=== PATIENT | female | born 1950 | race Caucasian/White ===

== ENCOUNTER 2024-06-14 09:05 | Emergency (ER) | payer MEDICARE, MEDICAID, SELFPAY ==
[2024-06-14] VITALS (9 sets, daily range): BP systolic 108–140; BP diastolic 54–113; PULSE 62–76; RESP 16–20; TEMP 36.4–36.6; O2SAT 96–97; BMI 29.0
--- NOTE | 2024-06-14 09:16 | EKG12_ITS ---
Test Reason : Blood Pressure : */* mmHG Vent. Rate : 73 BPM Atrial Rate : 73 BPM P-R Int : 224 ms QRS Dur : 88 ms QT Int : 410 ms P-R-T Axes : 77 60 65 degrees QTcB Int : 451 ms Sinus rhythm with 1st degree A-V block Otherwise normal ECG Confirmed by TANIA CLINE, REECE ([id number]), editorial manager WILBERT LAKHANI ([id number]) on 06/20/2024 7:06:01 AM Referred By: DIYA Confirmed By: REECE MARIN MD
--- NOTE | 2024-06-14 09:16 | CT_ITS ---
EXAM: CT CERVICAL SPINE WITHOUT INTRAVENOUS CONTRAST CLINICAL INDICATION: fall, head injury, mental status change, multiple falls, Eliquis, stroke hx TECHNIQUE: Helically acquired images were obtained of the cervical spine without intravenous contrast. 2D reformatted images were reviewed. This CT exam was performed using one or more of the following dose reduction techniques: automated exposure control, adjustment of the mA and/or kV according to patient size, and/or use of iterative reconstruction technique. RADIATION DOSE: CTDIvol = 19.12 mGy, DLP = 383.10 mGy-cm COMPARISON: No relevant prior studies available. FINDINGS: VERTEBRAE: Straightening of the C-spine curvature. Ankylosis of the predental space. Ankylosis of the left C2-C3, left C3-C4 and C4-C5 facet joints. Partial ankylosis of the right C2-C3 facet joint and right C3-C4 facet joint. No acute or remote fractures of the vertebral bodies and posterior osseous elements of the cervical spine. Minimal degenerative anterolisthesis of C6 on C7. DISCS/SPINAL CANAL/NEURAL FORAMINA: Moderate C5-C6 disc space narrowing with endplate sclerosis. Mild C4-C5 disc space height narrowing. Normal remaining cervical disc space heights. Normal central canal. Mild stenosis of the left C3-C4 and left C4-C5 intervertebral neuroforamina. Normal central canal and remaining cervical intervertebral neuroforamina. No suspicious cervical extruded disc fragment although limited by the absence of intrathecal contrast. SOFT TISSUES: Unremarkable. No prevertebral soft tissue swelling. LYMPH NODES: Unremarkable. No cervical adenopathy. LUNG APICES: Unremarkable as visualized. Clear. CT/Spine Cervical without Contras IMPRESSION: 1. No CT evidence of acute fractures of the cervical spine. 2. Minimal degenerative anterolisthesis of C6 on C7. 3. No CT evidence of cervical extruded disc fragment although limited by the absence of intrathecal contrast. Electronically Signed: Hemal Fajardo MD at 10:06 [facility] ,
--- NOTE | 2024-06-14 09:16 | RAD_ITS ---
EXAM: XR CHEST, 1 VIEW CLINICAL INDICATION: fall TECHNIQUE: Frontal view of the chest. COMPARISON: No relevant prior studies available. FINDINGS: LUNGS AND PLEURAL SPACES: Unremarkable. No consolidation or edema. No pneumothorax. No effusion. HEART: Unremarkable. Cardiac silhouette not enlarged. MEDIASTINUM: Central airways and mediastinal contour are unremarkable. BONES/JOINTS: Unremarkable. No acute fracture. SOFT TISSUES: Unremarkable. RAD/Chest 1 View (Portable) IMPRESSION: No radiographic evidence of acute cardiopulmonary disease. Electronically Signed: Hemal Fajardo MD at 9:45 EST ,
--- NOTE | 2024-06-14 09:16 | CT_ITS ---
EXAM: CT HEAD WITHOUT INTRAVENOUS CONTRAST CLINICAL INDICATION: mental status change, multiple falls, Eliquis, stroke hx TECHNIQUE: Multiple axial images were obtained of the head without intravenous contrast. This CT exam was performed using one or more of the following dose reduction techniques: automated exposure control, adjustment of the mA and/or kV according to patient size, and/or use of iterative reconstruction technique. RADIATION DOSE: CTDIvol = 44.99 mGy, DLP = 812.98 mGy-cm COMPARISON: No relevant prior studies available. FINDINGS: BRAIN AND EXTRA-AXIAL SPACES: Old cortical based ischemic infarct with cystic encephalomalacia and atrophy involving the left MCA and left JEANMARIE territories causing ex vacuo dilatation of the anterior body and frontal horn of the left lateral ventricle and Wallerian degeneration of the left cerebral peduncle. No intra- or extra-axial hemorrhage. No intracranial mass or mass effect. Posterior fossa structures are unremarkable. No hydrocephalus. Basal cisterns are patent. BONES/JOINTS: See above. SINUSES: Unremarkable as visualized. Clear. MASTOID AIR CELLS: Unremarkable. Clear. ORBITS: Visualized globes, extraocular muscles, optic nerves and retrobulbar fat appear unremarkable. CT/Brain/Head without Contrast IMPRESSION: 1. No CT evidence of intracranial bleed, acute ischemic infarct or acute intracranial abnormality. 2. Old cortically-based ischemic infarct with cystic encephalomalacia and atrophy involving the left MCA and left JEANMARIE territories. Electronically Signed: Hemal Fajardo MD at 10:00 EST ,
--- NOTE | 2024-06-14 09:18 | EX.ED.DYSGE1 ---
HPI History of Present Illness Chief Complaint: Alt LOC Detail of Chief Complaint: Mental status change and head injury Informant: patient, EMS and SNF Narrative Narrative: Patient presents to the emergency department via EMS from shelter facility. Patient found on the floor this morning with evidence of trauma to her head. She is on Eliquis for history of A-fib and prior strokes. Patient per fdc normally ANO x 3 and today more confused. She did vomit x 1 this morning. Patient also slid out of her recliner last evening but there was no injury at that time. Patient is a poor historian but will answer yes and no questions. Patient has prior history of stroke and prior history of dysarthria and aphasia. She has history of schizophrenia. PFSH [facility] Home Medications ?Medication ?Instructions ?Recorded ?Last Taken ?Type cephalexin 500 mg capsule 500 mg PO Q6 #28 CAPSULES 06/14/24 Unknown Rx Allergy/AdvReac Type Severity Reaction Status Date / Time adhesive Allergy Unknown NEEDS Verified 06/14/24 09:11 FOLLOW-UP adhesive tape (plastic tape) Allergy Unknown NEEDS Verified 06/14/24 09:11 FOLLOW-UP bee venom protein (honey bee) Allergy Unknown NEEDS Verified 06/14/24 09:11 FOLLOW-UP erythromycin base Allergy Unknown NEEDS Verified 06/14/24 09:11 FOLLOW-UP nitrofurantoin (From Allergy Unknown NEEDS Verified 06/14/24 09:11 Macrobid) FOLLOW-UP Penicillins (PCN) Allergy Unknown NEEDS Verified 06/14/24 09:11 FOLLOW-UP Sulfa (Sulfonamide Allergy Unknown NEEDS Verified 06/14/24 09:11 Antibiotics) FOLLOW-UP Social History Smoking Status: Never smoker ROS ROS ED ROS Narrative Difficult to obtain review of systems with patient as she is not a good informant today and difficult to understand speech. Review of Systems ROS Unobtainable: other Constitutional Constitutional ED: Reports lethargy; Denies chills, fever(s), sweats or weight loss Eyes Eyes: Denies blurry vision, change in vision or diplopia ENT ENT ED: Denies rhinorrhea or sore throat Cardiovascular Cardiovascular: Denies chest pain, orthopnea or racing heartbeat Respiratory/Chest Respiratory/Chest: Denies cough, dyspnea, dyspnea on exertion, orthopnea or sputum Gastrointestinal Gastrointestinal: Denies abdominal pain, diarrhea, nausea or vomiting Genitourinary Genitourinary ED: Denies dysuria, hematuria or urinary frequency Musculoskeletal Musculoskeletal: Denies arthralgias, back pain, myalgias or neck pain Integumentary Denies abscess, Abrasions or rash Neurologic Neurologic: Denies headache(s) or weakness Psychiatric Psychiatric: Denies anxiety, depression or suicidal thoughts Endocrine Endocrinology: Denies polydipsia, polyphagia or polyuria Hematologic/Lymphatic Hematologic/Lymphatic: Denies easy bleeding, easy bruising or lymphadenopathy Allergic/Immunologic Allergic/Immunologic ED: Denies mouth swelling, tongue swelling or urticaria EXAM Physical Exam Const Vital Signs: 06/14/24 09:07 06/14/24 10:05 06/14/24 11:00 Temperature 97.5 F L Temperature Source Temporal Pulse Rate 62 76 Respiratory Rate 20 H Blood Pressure 124/76 H 109/56 L 108/57 L Blood Pressure Mean 92 73 74 Pulse Ox 97 97 Oxygen Delivery Method Room Air Positive well nourished and well developed General Appearance ED: well developed and NAD HEENT Reports TM's clear and moist mucous membranes HEENT Narrative: Patient has diffuse ecchymosis and bruising to the frontal scalp and forehead. normocephalic; Negative for trauma or tenderness Tympanic Membrane ED: Yes TM's clear Eyes PERRL and EOMs intact bilaterally General Eye ED: Negative for pale conjunctiva or scleral icterus Neck no lymphadenopathy, supple and no JVD General: Negative for tenderness Chest Wall inspection of chest normal and palpation of chest normal Chest: Negative for tenderness Resp normal respiratory effort and clear to auscultation bilaterally Effort and Inspection: Negative for respiratory distress or pain with movement Auscultation: Negative for rhonchi, wheezes or diminished lung sounds Cardio regular rate, regular rhythm, S1 normal heart sound, S2 normal heart sound and no murmurs Peripheral Pulses: pulses 2+ throughout GI normal to inspection, nondistended, normoactive bowel sounds, soft to palpation, non-tender, non-distended and no masses Back/Spine no CVA tenderness and no thoracic nor lumbar tenderness Extremity Extremity Narrative: Right arm seems contracted General Extremety ED: Negative for edema General Extremity: Negative for edema Neuro No oriented x3, CN's II-XII intact bilaterally, no sensory deficits noted and No gait normal Neuro Narrative: Alert and awake. Follows commands. She has contracture of right upper extremity with no movement. Patient also with decreased movement in her right lower extremity. Patient with dysarthria. Sensorium / Orientation: awake, alert, oriented to person, oriented to place and oriented to time Motor Exam: strength 5/5 throughout and strength abnormal Psych mental status grossly normal Skin no rashes or lesions noted and no wounds MDM MDM MDM Narrative Medical decision making narrative: Patient presents to the emergency department after a fall and concern for head injury. Apparently she has been more confused. She is on Eliquis and there is evidence of trauma to her head. In the differential would be intracranial hemorrhage versus infectious etiology. IV line established on arrival. CT scan of the brain without contrast was unremarkable for acute intracranial hemorrhage. There was evidence of old stroke. CBC with differential, 6.5 with hemoglobin 13.4 and platelet count of of 153. Chemistries unremarkable. Glucose was at 186. Troponin was normal at 4. EKG obtained arrival showed sinus rhythm with rate of 75 bpm with no acute ST segment changes. I did do a CT scan of the cervical spine as well that was unremarkable. 1 view chest x-ray and 1 view of the pelvis also obtained were unremarkable. Urinalysis cath specimen was positive for infection with positive nitrites and greater than 100 WBCs and +1 bacteria. I did send off a culture. I will start her on Rocephin 1 g IV.-Patient can be discharged back to the fdc as she is comfort care measures. Will start her on antibiotics Keflex for fdc. Lab Data Attestation: I reviewed the patient's lab results. Labs: Laboratory Results - last 24 hr 06/14/24 06/14/24 09:29 11:06 WBC 6.5 RBC 4.42 Hgb 13.4 Hct 41.6 MCV 94.1 MCH 30.3 MCHC 32.2 RDW Std Deviation 46.1 H RDW Coeff of Korin 13.3 Plt Count 153 MPV 10.9 Immature Gran % (Auto) 0.200 Neut % (Auto) 77.6 H Lymph % (Auto) 12.3 L [place] % (Auto) 8.5 Eos % (Auto) 1.1 Baso % (Auto) 0.3 Absolute Neuts (auto) 5.0 Absolute Lymphs (auto) 0.80 L Nucleated RBC % 0 PT 14.4 INR 1.1 Sodium 140 Potassium 4.5 Chloride 107 Carbon Dioxide 25.0 Anion Gap 8 BUN 24 H Creatinine 0.84 Estim Creat Clear Calc 65.21 Est GFR (MDRD) Af Amer 85 Est GFR (MDRD) Non-Af 70 BUN/Creatinine Ratio 28.4 H Glucose 186 H Calcium 9.3 Troponin I High Sens 4 Urine Color Yellow Urine Clarity Cloudy Urine pH 6.0 Ur Specific Sabael 1.025 Urine Protein 30 H Urine Glucose (UA) Normal Urine Ketones Negative Urine Occult Blood 10 H Urine Nitrite Positive H Urine Bilirubin Negative Urine Urobilinogen 1 H Ur Leukocyte Esterase 500 H Urine RBC 0 SEEN Urine WBC >100 SEEN Ur Squamous Epith Cells 10-25 SEEN Urine Bacteria 1+ Urine Mucus 0 SEEN Radiography Chest X-Ray - ED: 1 View Diagnostic Testing: Clinical Impression(s) from Imaging Studies Brain CT 06/14/24 09:16 IMPRESSION: 1. No CT evidence of intracranial bleed, acute ischemic infarct or acute intracranial abnormality. 2. Old cortically-based ischemic infarct with cystic encephalomalacia and atrophy involving the left MCA and left JEANMARIE territories. Electronically Signed: Hemal Fajardo MD at 10:00 EST Reading Location ID and State: [facility] / [place] , Service support , Cervical Spine CT 06/14/24 09:16 IMPRESSION: 1. No CT evidence of acute fractures of the cervical spine. 2. Minimal degenerative anterolisthesis of C6 on C7. 3. No CT evidence of cervical extruded disc fragment although limited by the absence of intrathecal contrast. Electronically Signed: Hemal Fajardo MD at 10:06 EST Reading Location ID and State: [facility] / [place] , Service support , Chest X-Ray 06/14/24 09:16 IMPRESSION: No radiographic evidence of acute cardiopulmonary disease. Electronically Signed: Hemal Fajardo MD at 9:45 EST , Pelvis X-Ray 06/14/24 09:37 IMPRESSION: Suboptimal visualization of the bilateral inferior pubic rami due to positioning otherwise negative pelvis radiograph. Electronically Signed: Hemal Fajardo MD at 10:08 EST , 1 view chest x-ray obtained interpreted by myself as no evidence of infiltrate or pneumothorax. Radiology in agreement. 1 view pelvis x-ray obtained interpreted by myself as no evidence of fractures or other abnormalities. Radiology in agreement. EKG Initial EKG: Attestation: I personally reviewed and interpreted this EKG as follows: Comments: Sinus rhythm with rate of 73 bpm with first-degree AV block Discharge Plan Triage Chief Complaint: Alt LOC ED Provider: Janette Calderon Dx/Rx/DC Orders Clinical Impression: Closed head injury, Fall, Acute UTI Prescriptions: New cephalexin 500 mg capsule 500 mg PO Q6 Qty: 28 0RF Primary Care Provider: Care Physician,No Primary Referrals: NOT,DEFINED [Non-Staff] - Print Language: Divehi Disposition Disposition: Home, Self Care
--- NOTE | 2024-06-14 09:37 | RAD_ITS ---
EXAM: XR PELVIS, 1 OR 2 VIEWS CLINICAL INDICATION: fall TECHNIQUE: Frontal view of the pelvis. COMPARISON: No relevant prior studies available. FINDINGS: BONES/JOINTS: Unremarkable. No displaced fracture. No destructive or sclerotic lesions. Note that overlapping bowel shadows may however obscure fine detail. Sacroiliac joints are unremarkable. No widening of the pubic symphysis. The articular structures are unremarkable. SOFT TISSUES: Unremarkable. No soft tissue swelling or gas. RAD/Pelvis 1 or 2 Views IMPRESSION: Suboptimal visualization of the bilateral inferior pubic rami due to positioning otherwise negative pelvis radiograph. Electronically Signed: Hemal Fajardo MD at 10:08 EST ,
[2024-06-14 09:39] LABS: Basophil# 0.02 X10^3/uL; Basophil% 0.3 % (0-1); Eosinophil# 0.07 X10^3/uL; Eosinophils% 1.1 % (0-5); Hematocrit 41.6 % (37-47); Hemoglobin 13.4 g/dL (12.0-15.0); Lymphocyte % 12.3 % (19-41); Mean Corp Hgb Conc 32.2 g/dL (32-36); Mean Corpuscular Hgb 30.3 pg (27.0-32.0); Mean Corpuscular Volume 94.1 fL (81-99); Mean Platelet Vol. 10.9 fl (6.2-12.0); Monocyte# 0.55 X10^3/uL; Monocyte% 8.5 % (0-10); NRBC Flagged by Analyzer 0 % (0-5); Neutrophil # 5.03 X10^3/uL (2.7-7.7); Neutrophil % 77.6 % (47-70); Platelet Count 153 K/mm3 (150-450); RBC Distribution Width CV 13.3 % (11.6-14.6); RBC Distribution Width SD 46.1 fl (35.1-43.9); Red Blood Count 4.42 M/mm3 (4.2-5.4); White Blood Count 6.5 K/mm3 (4.4-11.0)
[2024-06-14 09:51] LABS: International Normalized Ratio 1.1; Prothrombin Time (Protime)PT. 14.4 SECONDS (11.7-14.9)
[2024-06-14 09:56] LABS: Anion Gap 8 (5-15); BUN 24 mg/dL (7-18); BUN/Creat Ratio 28.4 RATIO (10-20); Calcium,Total 9.3 mg/dL (8.5-10.1); Chloride 107 mmol/L (98-107); Creatinine, Serum 0.84 mg/dL (0.55-1.02); EST Glomerular Filtration Rate 70 mL/min (>60); Est Glom Filt Rate - Afr Amer 85 mL/min (>60); Estimated Creatinine Clearance 65.21 ml/min; Glucose 186 mg/dL (74-106); Potassium 4.5 mmol/L (3.5-5.1); Sodium Level 140 mmol/L (136-145); Troponin-I HS 4 pg/mL (3.0-54.0)
[2024-06-14] MEDS: Ondansetron 4 MG/2 ML Vial IV (10:44)
[2024-06-14 11:09] LABS: Mucous, Urine 0 SEEN /hpf (<or=2+); Red Blood Cells-Urine 0 SEEN /hpf (0-5)
[2024-06-14 11:20] LABS: Color, Urine Yellow (Yellow); Glucose, Dipstick Normal (Normal); Ketone-Dipstick Negative (Negative); Leukocyte Esterase-Dipstick 500 /ul (Negative); Nitrite-Dipstick Positive (Negative); Occult Blood-Urine 10 /ul (Negative); Protein-Dipstick 30 mg/dl (Negative); Specific Gravity, Urine 1.025 (1.002-1.030); Urine Bilirubin Dipstick Negative (Negative); Urine Clarity Cloudy (Clear); Urine Urobilinogen 1 mg/dl (Normal)
[2024-06-14 11:33] LABS: White Blood Cells >100 SEEN /hpf (0-5)
[2024-06-14 11:34] LABS: Bacteria 1+ /hpf (None Seen)
[2024-06-14 11:37] LABS: Squamous Epithelial Cells - UA 10-25 SEEN /hpf (5-10)
[2024-06-14] MEDS: Ceftriaxone 1 GM/50 ML BAG IV (12:14)
--- NOTE | 2024-06-14 14:01 | ED.RN ---
Nurse to nurse given to Marcie rodrigez [facility]
== END 2024-06-14 17:06 | disposition home or self-care (01) ==
PROVIDERS: Emergency Provider Emergency Medicine; Visit Provider Emergency Medicine
DX: S09.90XA Unspecified injury of head, initial encounter (principal); F20.9 Schizophrenia, unspecified; N39.0 Urinary tract infection, site not specified; Z79.01 Long term (current) use of anticoagulants; Z79.899 Other long term (current) drug therapy; Z86.73 Personal history of transient ischemic attack (TIA), and cerebral infarction without residual deficits; W19.XXXA Unspecified fall, initial encounter
CPT/HCPCS: 70450; 71045; 72125; 72170; 80048; 81001; 84484; 85025; 85610; 87077; 87086; 87088; 87186; 93005; 96365; 96375; 99285; P9612; A4216; J2405

== ENCOUNTER 2024-12-18 08:55 | Day surgery (SDC) | payer MEDICARE, MEDICAID, SELFPAY ==
--- NOTE | 2024-12-15 15:10 | PAT.ANESEVAL ---
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 When Was Last Pacemaker Check QUESTION #4 FULL TEXT: You/Your Family Experience fever (hyperthermia) with Anesthesia Last Oral Intake Last Oral intake: Last Oral Intake NPO since Meds taken in AM with sips of water? Meds patient instructed to take am of surgery PONV PONV - massage coordinator: PONV - massage coordinator Female Yes 12/15/24 14:40 HX of Motion Sickness No 12/15/24 14:40 HX of N/V After Surgery No 12/15/24 14:40 Non-Smoker Yes 12/15/24 14:40 Duration of Surgery greater No 12/15/24 14:40 than 60 minutes Number of Risk Factors 2 12/15/24 14:40 PONV Score Moderate Risk 12/15/24 14:40 Height & Weight Height & Weight: Anesthesia: Height & Weight Height 5 ft 6 in 06/14/24 09:07 Respiratory Assessment Respiratory Assessment - massage coordinator: Respiratory Tract Infection Hx - massage coordinator Hx Respiratory Tract Infection No 12/15/24 14:40 STOP Sleep Apnea STOP Sleep Apnea - massage coordinator: STOP Sleep Apnea - massage coordinator Hx Hypertension Yes 12/15/24 14:40 Hx Sleep Apnea No 12/15/24 14:40 CPAP No 12/15/24 14:40 BIPAP No 12/15/24 14:40 Do you snore loudly (louder No 12/15/24 14:40 than talking or can be heard Do you often feel tired/ Yes 12/15/24 14:40 fatigued/ sleepy during daytime? Has anyone observed you stop No 12/15/24 14:40 breathing during sleep? STOP Results Positive 12/15/24 14:40 QUESTION #5 FULL TEXT : Do you snore loudly (louder than talking or can be heard through closed doors)? 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 Specify any problems Hx of Preganancy in last 3 No 12/15/24 14:40 Months Nurse Filling Out Transfusion DSCHRIBER 12/15/24 14:40 & Questions: Date: 12/15/24 12/15/24 14:40 Time: 14:42 12/15/24 14:40 Patient unable to answer at this time (ie. confused, unrespo /Reproduction History /Reproductive History - massage coordinator: /Reproductive Hx- massage coordinator Hx Now No 12/15/24 14:40 Gestational Age (in weeks): EDC: Hx Hx Para Hx Section SAB No 12/15/24 14:40 [facility] Medical History (Updated 12/15/24 @ 14:48 by Unique Morgan) [place] Post-menopausal Dementia Hematoma Bruising Uses wheelchair Rheumatoid arthritis Non-smoker History of CHF (congestive heart failure) Muscle weakness HTN (hypertension) Atrial fibrillation CHANDRAKANT (obstructive sleep apnea) Epilepsy Cirrhosis of liver COPD (chronic obstructive pulmonary disease) Dysphagia Aphasia following cerebral infarction Aphasia as late effect of cerebrovascular accident (CVA) Cerebral infarct Anxiety Pseudobulbar affect Manic depression Paranoid schizophrenia Home Medications ?Medication ?Instructions ?Recorded ?Last Taken ?Type acetaminophen 325 mg tablet 650 mg PO TID pain 06/14/24 Unknown History apixaban 2.5 mg tablet (Eliquis) 2.5 mg PO BID 06/14/24 Unknown History atorvastatin 20 mg tablet 20 mg PO QHS CHOLESTEROL 06/14/24 Unknown History clonazepam 0.25 mg disintegrating 0.25 mg PO BID ANTI CONVULSANT 06/14/24 Unknown History tablet clonazepam 1 mg disintegrating 1 mg PO BID ANTICONVULSANT 06/14/24 Unknown History tablet docusate sodium 100 mg capsule 100 mg PO BID CONSTIPATION 06/14/24 Unknown History (Colace) melatonin 3 mg tablet 5 mg PO QHS sleep 06/14/24 Unknown History olanzapine 7.5 mg tablet 7.5 mg PO DAILY 06/14/24 Unknown History polyethylene glycol 3350 17 17 g PO DAILY 06/14/24 Unknown History gram/dose oral powder omeprazole 20 mg capsule,delayed 20 mg PO QDAY 07/07/24 Unknown History release hydroxyzine pamoate 25 mg capsule 10 mg PO QHS 12/15/24 Unknown History (Vistaril) lacosamide 10 mg/mL oral solution 15 mg PO BID 12/15/24 Unknown History lorazepam 0.5 mg tablet (Ativan) 0.5 mg PO TID 12/15/24 Unknown History magnesium hydroxide 400 mg/5 mL 30 ml PO DAILY PRN constipation 12/15/24 Unknown History oral suspension olanzapine 5 mg tablet 5 mg PO QHS 12/15/24 Unknown History ondansetron HCl 4 mg tablet 4 mg PO Q6H PRN nausea and vomiting 12/15/24 Unknown History Allergy/AdvReac Type Severity Reaction Status Date / Time adhesive Allergy Unknown NEEDS Verified 12/15/24 14:18 FOLLOW-UP adhesive tape (plastic tape) Allergy Unknown NEEDS Verified 12/15/24 14:18 FOLLOW-UP bee venom protein (honey bee) Allergy Unknown NEEDS Verified 12/15/24 14:18 FOLLOW-UP erythromycin base Allergy Unknown NEEDS Verified 12/15/24 14:18 FOLLOW-UP nitrofurantoin (From Allergy Unknown NEEDS Verified 12/15/24 14:18 Macrobid) FOLLOW-UP Penicillins (PCN) Allergy Unknown NEEDS Verified 12/15/24 14:18 FOLLOW-UP Sulfa (Sulfonamide Allergy Unknown NEEDS Verified 12/15/24 14:18 Antibiotics) FOLLOW-UP Surgical History (Updated 12/15/24 @ 14:48 by Unique Morgan) Hx of hysterectomy Hx of carpal tunnel repair Social History Smoking Status: Never smoker Audit: Pertinent Findings Pertinent Findings EKG Perinent findings: June 14, 2024. Sinus rhythm with first-degree AV block. Recommendation Anesthesia Recommendation Anesthesia recommendation: OPTIMIZED for anesthesia
[2024-12-18] VITALS (9 sets, daily range): BP systolic 95–124; BP diastolic 39–68; PULSE 58–67; RESP 16; TEMP 36.1; O2SAT 93–97; BMI 26.3
--- NOTE | 2024-12-18 09:01 | PCM.PRE.AN2 ---
ASA Classification* ASA Classification ASA Classification: 3 Assessment & Plan Anesthesia* Anesthesia Assessment Anesthesia Assessment: Discussed sedation and/or anesthesia options, risks, benefits, and alternatives with patient/parents/legal guardian/POA. Questions invited. The patient/parents/legal guardian/POA seems to understand and agrees to proceed with anesthesia plan. Reviewed the physical assessment, medical history, allergy history and patient home medications list prior to surgery/procedure/anesthetic and documented any changes. Performed airway and anesthesia risk assessments. Anesthesia Type Anesthesia Type: MAC Anesthesia Focused Assessment* Airway Assessment Mouth opens: >3 cm Mallampati Score: II Labs Anesthesia Preop lab: CBC WBC 6.5 K/mm3 (4.4-11.0) 06/14/24 09:06/14/24 RBC 4.42 M/mm3 (4.2-5.4) 06/14/24 09:06/14/24 Hgb 13.4 g/dL (12.0-15.0) 06/14/24 09:06/14/24 Hct 41.6 % (37-47) 06/14/24 09:06/14/24 Plt Count 153 K/mm3 (150-450) 06/14/24 09:06/14/24 CHEMISTRY Potassium 4.5 mmol/L (3.5-5.1) 06/14/24 09:06/14/24 Sodium 140 mmol/L (136-145) 06/14/24 09:06/14/24 BUN 24 mg/dL (7-18) H 06/14/24 09:06/14/24 Creatinine 0.84 mg/dL (0.55-1.02) 06/14/24 09:06/14/24 Glucose 186 mg/dL (74-106) H 06/14/24 09:06/14/24 COAG PT 14.4 SECONDS (11.7-14.9) 06/14/24 09:06/14/24 Pre-Assessment Diagnosis/Proposed Procedure Planned Operative Procedure(s): EGD Anesthesia History 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 When Was Last Pacemaker Check QUESTION #4 FULL TEXT: You/Your Family Experience fever (hyperthermia) with Anesthesia Last Oral Intake Last Oral intake: Last Oral Intake NPO since Meds taken in AM with sips of water? Meds patient instructed to take am of surgery PONV PONV - user interface artist: PONV - user interface artist Female Yes 12/15/24 14:40 HX of Motion Sickness No 12/15/24 14:40 HX of N/V After Surgery No 12/15/24 14:40 Non-Smoker Yes 12/15/24 14:40 Duration of Surgery greater No 12/15/24 14:40 than 60 minutes Number of Risk Factors 2 12/15/24 14:40 PONV Score Moderate Risk 12/15/24 14:40 Height & Weight Height & Weight: Anesthesia: Height & Weight Height 5 ft 6 in 06/14/24 09:07 Respiratory Assessment Respiratory Assessment - user interface artist: Respiratory Tract Infection Hx - user interface artist Hx Respiratory Tract Infection No 12/15/24 14:40 STOP Sleep Apnea STOP Sleep Apnea - user interface artist: STOP Sleep Apnea - user interface artist Hx Hypertension Yes 12/15/24 14:40 Hx Sleep Apnea No 12/15/24 14:40 CPAP No 12/15/24 14:40 BIPAP No 12/15/24 14:40 Do you snore loudly (louder No 12/15/24 14:40 than talking or can be heard Do you often feel tired/ Yes 12/15/24 14:40 fatigued/ sleepy during daytime? Has anyone observed you stop No 12/15/24 14:40 breathing during sleep? STOP Results Positive 12/15/24 14:40 QUESTION #5 FULL TEXT : Do you snore loudly (louder than talking or can be heard through closed doors)? 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 Specify any problems Hx of Preganancy in last 3 No 12/15/24 14:40 Months Nurse Filling Out Transfusion DSCHRIBER 12/15/24 14:40 & Questions: Date: 12/15/24 12/15/24 14:40 Time: 14:42 12/15/24 14:40 Patient unable to answer at this time (ie. confused, unrespo /Reproduction History /Reproductive History - user interface artist: /Reproductive Hx- user interface artist Hx Now No 12/15/24 14:40 Gestational Age (in weeks): EDC: Hx Hx Para Hx Section SAB No 12/15/24 14:40 PFS Medical History Lives in long-term Post-menopausal Dementia Hematoma Bruising Uses wheelchair Rheumatoid arthritis Non-smoker History of CHF (congestive heart failure) Muscle weakness HTN (hypertension) Atrial fibrillation CHANDRAKANT (obstructive sleep apnea) Epilepsy Cirrhosis of liver COPD (chronic obstructive pulmonary disease) Dysphagia Aphasia following cerebral infarction Aphasia as late effect of cerebrovascular accident (CVA) Cerebral infarct Anxiety Pseudobulbar affect Manic depression Paranoid schizophrenia Home Medications ?Medication ?Instructions ?Recorded ?Last Taken ?Type acetaminophen 325 mg tablet 650 mg PO TID pain 06/14/24 Unknown History apixaban 2.5 mg tablet (Eliquis) 2.5 mg PO BID 06/14/24 Unknown History atorvastatin 20 mg tablet 20 mg PO QHS CHOLESTEROL 06/14/24 Unknown History clonazepam 0.25 mg disintegrating 0.25 mg PO BID ANTI CONVULSANT 06/14/24 Unknown History tablet clonazepam 1 mg disintegrating 1 mg PO BID ANTICONVULSANT 06/14/24 Unknown History tablet docusate sodium 100 mg capsule 100 mg PO BID CONSTIPATION 06/14/24 Unknown History (Colace) melatonin 3 mg tablet 5 mg PO QHS sleep 06/14/24 Unknown History olanzapine 7.5 mg tablet 7.5 mg PO DAILY 06/14/24 Unknown History polyethylene glycol 3350 17 17 g PO DAILY 06/14/24 Unknown History gram/dose oral powder omeprazole 20 mg capsule,delayed 20 mg PO QDAY 07/07/24 Unknown History release hydroxyzine pamoate 25 mg capsule 10 mg PO QHS 12/15/24 Unknown History (Vistaril) lacosamide 10 mg/mL oral solution 15 mg PO BID 12/15/24 Unknown History lorazepam 0.5 mg tablet (Ativan) 0.5 mg PO TID 12/15/24 Unknown History magnesium hydroxide 400 mg/5 mL 30 ml PO DAILY PRN constipation 12/15/24 Unknown History oral suspension olanzapine 5 mg tablet 5 mg PO QHS 12/15/24 Unknown History ondansetron HCl 4 mg tablet 4 mg PO Q6H PRN nausea and vomiting 12/15/24 Unknown History Allergy/AdvReac Type Severity Reaction Status Date / Time adhesive Allergy Unknown NEEDS Verified 12/15/24 14:18 FOLLOW-UP adhesive tape (plastic tape) Allergy Unknown NEEDS Verified 12/15/24 14:18 FOLLOW-UP bee venom protein (honey bee) Allergy Unknown NEEDS Verified 12/15/24 14:18 FOLLOW-UP erythromycin base Allergy Unknown NEEDS Verified 12/15/24 14:18 FOLLOW-UP nitrofurantoin (From Allergy Unknown NEEDS Verified 12/15/24 14:18 Macrobid) FOLLOW-UP Penicillins (PCN) Allergy Unknown NEEDS Verified 12/15/24 14:18 FOLLOW-UP Sulfa (Sulfonamide Allergy Unknown NEEDS Verified 12/15/24 14:18 Antibiotics) FOLLOW-UP Surgical History Hx of hysterectomy Hx of carpal tunnel repair Social History Smoking Status: Never smoker Review of Systems (Anesthesia) ROS Narrative System reviewed and no additional complaints, except as documented.
--- NOTE | 2024-12-18 09:10 | PCM.HP.STD ---
HPI - General General Date of Admission: 12/18/24 Date of Service: 12/18/24 Chief Complaint: dysphagia HPI Narrative JOESPH ARTEAGA, is a 74 F who presents for the evaluation of dysphagia. Pt currently resides in [facility]. Pt has dysarthria and is unable to give much of a history of her symptoms. She does endorse trouble swallowing. SHe is unsure how long this has been going on for. Per [facility] staff, when she eats she often regurgitated her food. She denies abd pain, n/v or heartburn. SHe has had an EGD before but does not know when. She had Barium swallow showing reflux and aspiration. Speech therapy recommended appointment with GI for EGD. [facility] Medical History Lives in [facility] Post-menopausal Dementia Hematoma Bruising Uses wheelchair Rheumatoid arthritis Non-smoker History of CHF (congestive heart failure) Muscle weakness HTN (hypertension) Atrial fibrillation CHANDRAKANT (obstructive sleep apnea) Epilepsy Cirrhosis of liver COPD (chronic obstructive pulmonary disease) Dysphagia Aphasia following cerebral infarction Aphasia as late effect of cerebrovascular accident (CVA) Cerebral infarct Anxiety Pseudobulbar affect Manic depression Paranoid schizophrenia Home Medications ?Medication ?Instructions ?Recorded ?Last Taken ?Type acetaminophen 325 mg tablet 650 mg PO TID pain 06/14/24 Unknown History apixaban 2.5 mg tablet (Eliquis) 2.5 mg PO BID 06/14/24 Unknown History atorvastatin 20 mg tablet 20 mg PO QHS CHOLESTEROL 06/14/24 Unknown History clonazepam 0.25 mg disintegrating 0.25 mg PO BID ANTI CONVULSANT 06/14/24 Unknown History tablet clonazepam 1 mg disintegrating 1 mg PO BID ANTICONVULSANT 06/14/24 Unknown History tablet docusate sodium 100 mg capsule 100 mg PO BID CONSTIPATION 06/14/24 Unknown History (Colace) melatonin 3 mg tablet 5 mg PO QHS sleep 06/14/24 Unknown History olanzapine 7.5 mg tablet 7.5 mg PO DAILY 06/14/24 Unknown History polyethylene glycol 3350 17 17 g PO DAILY 06/14/24 Unknown History gram/dose oral powder omeprazole 20 mg capsule,delayed 20 mg PO QDAY 07/07/24 Unknown History release hydroxyzine pamoate 25 mg capsule 10 mg PO QHS 12/15/24 Unknown History (Vistaril) lacosamide 10 mg/mL oral solution 15 mg PO BID 12/15/24 Unknown History lorazepam 0.5 mg tablet (Ativan) 0.5 mg PO TID 12/15/24 Unknown History magnesium hydroxide 400 mg/5 mL 30 ml PO DAILY PRN constipation 12/15/24 Unknown History oral suspension olanzapine 5 mg tablet 5 mg PO QHS 12/15/24 Unknown History ondansetron HCl 4 mg tablet 4 mg PO Q6H PRN nausea and vomiting 12/15/24 Unknown History Allergy/AdvReac Type Severity Reaction Status Date / Time adhesive Allergy Unknown NEEDS Verified 12/15/24 14:18 FOLLOW-UP adhesive tape (plastic tape) Allergy Unknown NEEDS Verified 12/15/24 14:18 FOLLOW-UP bee venom protein (honey bee) Allergy Unknown NEEDS Verified 12/15/24 14:18 FOLLOW-UP erythromycin base Allergy Unknown NEEDS Verified 12/15/24 14:18 FOLLOW-UP nitrofurantoin (From Allergy Unknown NEEDS Verified 12/15/24 14:18 Macrobid) FOLLOW-UP Penicillins (PCN) Allergy Unknown NEEDS Verified 12/15/24 14:18 FOLLOW-UP Sulfa (Sulfonamide Allergy Unknown NEEDS Verified 12/15/24 14:18 Antibiotics) FOLLOW-UP Surgical History Hx of hysterectomy Hx of carpal tunnel repair Social History Smoking Status: Never smoker ROS Constitutional Constitutional: Denies fatigue, fever(s), poor appetite, weight gain or weight loss Gastrointestinal Gastrointestinal: Denies belching, bloating, change in bowel habits, change in stool character, chewing difficulty, coffee ground emesis, constipation, cramping, diarrhea, dyspepsia, dysphagia, early satiety, excessive flatus, fecal incontinence, heartburn, hematemesis, hematochezia, hemorrhoids, loose stools, melena, nausea, odynophagia, rectal bleeding, tenesmus, vomiting or weight changes Physical Exam Const alert, oriented x3, no apparent distress and healthy appearing General Appearance: cooperative GI normal to inspection, nondistended, normoactive bowel sounds, soft to palpation, non-tender and non-distended Percussion: normal to percussion Rectal Exam: deferred Assessment & Plan Assessment/Plan (1) Dysphagia: PLAN: Assessment and Plan Assessment and Plan (1) Gastroesophageal reflux disease: (2) Dysphagia: Status: Acute Plan: This is a 74 yo female pt here today for evolution of difficulty swallowing. Pt has dysarthria and does not speak much. Per nursing staff she has had regurgitation after eating but unclear how long this has been going on for. Barium swallow showing reflux and aspiration. She will undergo EGD to assess her upper GI tract and have dilation if needed. SHe is agreeable to this. SHe will f/u after procedure. -EGD with dilation if indicated -F/u after procedure
[2024-12-18] MEDS: Lactated Ringers 1,000 ML 15 ML IV (09:51)
--- NOTE | 2024-12-18 10:00 | EGD_PTH ---
PATIENT: JOESPH ARTEAGA LOC: EN U#:[id number] AGE/SX: 74/F ROOM: RE12/18/[address]: Dr. Ricardo Varma DO : 1950 BED: DIS: 12/18/2024 SPEC #: [id number] RECD: 12/18/24 11:22 STATUS: EJNAE RERobbie #: [id number] ARVIND: 12/18/24 10:[address]: Ricardo Varma DEPT: SURGICAL PATHOLOGY RECD BY: Nils Berman ENTERED: 12/18/24 12:41 SP TYPE: EGD BIOPSY OTRRI DR: Dr. Sara Hahn MD Tissues: A - Esophagus, NOS Procedures: Special Stain Group I Surgery Specimen Level IV GMS Stain (control) HEADER OPERATION: EGD, biopsy, dilation PRE-OP DIAGNOSIS: Gastroesophageal reflux disease, dysphagia TISSUE SUBMITTED: A- Random esophagus biopsy MICROSCOPIC DIAGNOSIS A. Esophagus, random, biopsy: - Squamous mucosa with reactive changes, focal acute inflammation, and up to 5 eosinophils per high power field. - PASD stain for fungal organisms is pending and will be reported in an addendum. MICROSCOPIC DESCRIPTION Slides are reviewed. GROSS DESCRIPTION A. Received in fixative is one container labeled with the patient's name and designated Random esophagus biopsy. The specimen consists of two irregular fragments of light gill soft tissue, each measuring 0.5 cm. The specimen is totally submitted in one cassette. [place] 12/18/2024 [facility]:[id number] ADDENDUM ADDENDUM ADDENDUM ADDENDUM ADDENDUM ADDENDUM ADDENDUM ADDENDUM ADDENDUM ADDENDUM 12/26/2024 12:27 ADDENDUM 12/26/2024 12:27 ADDENDUM 12/26/2024 12:27 ADDENDUM 12/26/2024 12:27 ADDENDUM 12/26/2024 12:27 This addendum is to report the result of the PASD stain: A. PASD stain is negative for fungal organisms. All matched controls reacted appropriately. These tests were developed and their performance characteristics determined by [facility]. They may not have been cleared or approved by the U.S. Food and Drug Administration. The FDA has determined that such clearance or approval is not necessary.? The above immunohistochemical/dualISH?markers are reviewed by the Pathologist.
--- NOTE | 2024-12-18 10:41 | OP.PROVAT_ITS ---
12/18/2024 No Primary Care Physician Re : [facility] This procedure was performed on Wednesday, December 18, 2024. My impressions and recommendations are as follows: Impressions : - Benign-appearing esophageal stenosis. Biopsied. Dilated. - Abnormal esophageal motility, consistent with presbyesophagus. - No gross lesions in the entire stomach. - No gross lesions in the entire examined duodenum. Recommendations : - Discharge patient to home. - Resume previous diet. - Continue present medications. - Await pathology results. My findings are described in the full procedure note, which is enclosed. If I can be of further assistance, please feel free to contact me at . Sincerely, Ricardo Varma, 12/18/2024 10:41:03 AM This report has been signed electronically.
--- NOTE | 2024-12-18 10:41 | OP.EGD_ITS ---
Patient Name: Nola Garcia Procedure Date: 12/18/2024 10:15 AM Date of : 1950 Age: 74 Procedure: Upper GI endoscopy Indications: Dysphagia Providers: Ricardo Varma DO Medicines: Monitored Anesthesia Care Patient Profile: This is a 74 year old female. Refer to note in patient chart for documentation of history and physical. Patient has symptoms of dysphagia with both liquids and solids and acute nausea. Complications: No immediate complications. Procedure: Pre-Anesthesia Assessment: - Prior to the procedure, a History and Physical was performed, and patient medications and allergies were reviewed. The patient is competent. The risks and benefits of the procedure and the sedation options and risks were discussed with the patient. All questions were answered and informed consent was obtained. Patient identification and proposed procedure were verified by the physician in the pre-procedure area. Mental Status Examination: alert and oriented. Airway Examination: normal oropharyngeal airway and neck mobility. Respiratory Examination: clear to auscultation. CV Examination: normal. Prophylactic Antibiotics: The patient does not require prophylactic antibiotics. Prior Anticoagulants: The patient has taken no anticoagulant or antiplatelet agents except for NSAID medication. ASA Grade Assessment: II - A patient with mild systemic disease. After reviewing the risks and benefits, the patient was deemed in satisfactory condition to undergo the procedure. The anesthesia plan was to use monitored anesthesia care (MAC). Immediately prior to administration of medications, the patient was re-assessed for adequacy to receive sedatives. The heart rate, respiratory rate, oxygen saturations, blood pressure, adequacy of pulmonary ventilation, and response to care were monitored throughout the procedure. The physical status of the patient was re-assessed after the procedure. After obtaining informed consent, the endoscope was passed under direct vision. Throughout the procedure, the patient's blood pressure, pulse, and oxygen saturations were monitored continuously. The was introduced through the mouth, and advanced to the second part of duodenum. The upper GI endoscopy was accomplished without difficulty. The patient tolerated the procedure well. Scope In: 10:27:00 AM Scope Out: 10:31:35 AM Total Procedure Duration Time 0 hours 4 minutes 35 seconds Findings: One benign-appearing, intrinsic moderate (circumferential scarring or stenosis; an endoscope may pass) stenosis was found 20 to 22 cm from the incisors. This stenosis measured 6 cm (in length). The stenosis was traversed. Biopsies were taken with a cold forceps for histology. Verification of patient identification for the specimen was done. A guidewire was placed and the scope was withdrawn. Dilation was performed with a Savary dilator with no resistance at 54 Fr. The dilation site was examined and showed moderate improvement in luminal narrowing. Estimated blood loss was minimal. Abnormal motility was noted in the esophagus. The cricopharyngeus was abnormal. There are extra peristaltic waves in the esophageal body. The distal esophagus/lower esophageal sphincter is spastic, but gives up passage to the endoscope. No gross lesions were noted in the entire examined stomach. No gross lesions were noted in the entire examined duodenum. Impression: - Benign-appearing esophageal stenosis. Biopsied. Dilated. - Abnormal esophageal motility, consistent with presbyesophagus. - No gross lesions in the entire stomach. - No gross lesions in the entire examined duodenum. Recommendation: - Discharge patient to home. - Resume previous diet. - Continue present medications. - Await pathology results. Procedure Code(s): --- Professional --- 46750, Esophagogastroduodenoscopy, flexible, transoral; with insertion of guide wire followed by passage of dilator(s) through esophagus over guide wire 27779, 59,51, Esophagogastroduodenoscopy, flexible, transoral; with biopsy, single or multiple CPT copyright 2021 [employer]. All rights reserved. The codes documented in this report are preliminary and upon financial analysis manager review may be revised to meet current compliance requirements. Ricardo Varma DO 12/18/2024 10:41:03 AM This report has been signed electronically. Number of Addenda: 0 Note Initiated On: 12/18/2024 10:15 AM
--- NOTE | 2024-12-18 10:41 | PCM.POST.ANE ---
Anesthesia: Postop Eval I Current Vital Signs Temperature: 97 F Pulse Rate: 64 Blood Pressure: 97/39 Respiratory Rate: 16 Pulse Ox: 94 Oxygen Delivery Method: Room Air Assessment Airway patent: Yes Spontaneous unlabored respirations: Yes Mental status: Asleep nausea: No Vomiting: No Anesthesia Complication: No Fluid Hydration Crystalloid volume administer (ml): 300 Total IV fluid infused: 300 Progress Note Anesthesia document: Postop Eval 1 completed: Yes
--- NOTE | 2024-12-18 13:55 | PCM.POSTANE2 ---
Anesthesia Postop Eval I Sum Postop Eval Completion status Anesthesia document: Postop Eval 1 completed: Yes Anesthesia Postop Eval I Summary Anesthesia Postop Eval I Summary: Anesthesia Postop Eval I: Assessment Summary Airway patent Yes 12/18/24 10:42 [email or web address] Spontaneous unlabored Yes 12/18/24 10:42 [email or web address] respirations Mental status Asleep 12/18/24 10:42 [email or web address] nausea No 12/18/24 10:42 [email or web address] Vomiting No 12/18/24 10:42 [email or web address] Anesthesia Postop Eval I: Fluid Summary Crystalloid volume administer 300 12/18/24 10:42 [email or web address] (ml) Colloids volume administered ( ml) Blood Product volume administered (ml) Total IV fluid infused 300 12/18/24 10:42 [email or web address] Anesthesia Postop Eval I: Summary Notes Anesthesia Complication No 12/18/24 10:42 [email or web address] Anesthesia Complication Comment: Post-operative progress note Anesthesia: Postop Eval II Evaluation Mental status: Awake Pain Level: 0 nausea: No Vomiting: No
== END 2024-12-18 11:50 | disposition home or self-care (01) ==
LOC: EN 08:59 → AC 09:02
PROVIDERS: PCP Hospitalist; Referring Provider Hospitalist; Visit Provider Internal Medicine Gastroenterology
PROC: 0DJ08ZZ Inspection of Upper Intestinal Tract, Via Natural or Artificial Opening Endoscopic (ICD-10-PCS; CPT 43235; principal; 2024-12-18 09:55)
DX: K22.2 Esophageal obstruction (principal); M06.9 Rheumatoid arthritis, unspecified; K74.60 Unspecified cirrhosis of liver; F03.92 Unspecified dementia, unspecified severity, with psychotic disturbance; F03.93 Unspecified dementia, unspecified severity, with mood disturbance; F03.94 Unspecified dementia, unspecified severity, with anxiety; J44.9 Chronic obstructive pulmonary disease, unspecified; I48.91 Unspecified atrial fibrillation; G40.909 Epilepsy, unspecified, not intractable, without status epilepticus; K21.00 Gastro-esophageal reflux disease with esophagitis, without bleeding; I69.320 Aphasia following cerebral infarction; G47.33 Obstructive sleep apnea (adult) (pediatric); Z79.01 Long term (current) use of anticoagulants; Z79.899 Other long term (current) drug therapy
CPT/HCPCS: 43248; 43239; 88305; C1769; J2405